=== PATIENT | male | born 1990 | race African-American/Black ===

== ENCOUNTER 2021-01-08 19:02 | Emergency (ER) | payer OTHER ==
[~2021-01-08] VITALS: Ht 177.8 cm; Wt 88.6 kg
[2021-01-08] MEDS ORDERED: ZYRTEC10 M3 PO (19:15)
[2021-01-08] MEDS ORDERED: IVERMECTIN3 MG PO (19:58)
[2021-01-08 20:45] LABS: URINE APPEARANCE HAZY; URINE BILIRUBIN NEGATIVE (NEGATIVE); URINE BLOOD NEGATIVE (NEGATIVE); URINE COLOR YELLOW; URINE GLUCOSE NEGATIVE (NEGATIVE); URINE KETONE NEGATIVE (NEGATIVE); URINE LEUKOCYTE ESTERASE TRACE (NEGATIVE); URINE NITRATE NEGATIVE (NEGATIVE); URINE PROTEIN(semi-quant) NEGATIVE (NEGATIVE); URINE UROBILINOGEN NORMAL (NORMAL); URINE WBC 16-30 /hpf (0-3)
[2021-01-08 20:46] LABS: URINE MUCUS PRESENT (NOT PRESENT)
[2021-01-08 22:14] VITALS: BP 132/81
== END 2021-01-08 22:14 | disposition home or self-care (01) ==
LOC: ED 19:02
PROVIDERS: Nurse Practitioner Family
DX: G56.03 Carpal tunnel syndrome, bilateral upper limbs (principal); B86 Scabies; R05 Cough; R30.0 Dysuria; R07.2 Precordial pain; F17.210 Nicotine dependence, cigarettes, uncomplicated; Z86.16 Personal history of COVID-19
CPT/HCPCS: J0696